=== PATIENT | male | born 1975 | race Asian ===

== ENCOUNTER 2019-09-18 10:27 | Emergency (ER) | payer OTHER ==
[~2019-09-18] VITALS: Ht 167.6 cm; Wt 63.5 kg
[2019-09-18 10:32] VITALS: BP 112/72
[2019-09-18] MEDS ORDERED: ACYCLOVIR 200 MG CAP PO ONE (10:55)
--- NOTE | 2019-09-18 11:22 | NUR ---
SPOKE WITH ANDREEA, CHARGE NURSE AT [facility]. REPORT GIVEN. INFORMED THAT PT WILL BE RETURNING TO FACILITY VIA AMBULANCE WITH ETA OF 1200.
[2019-09-18 12:11] VITALS: BP 107/70
--- NOTE | 2019-09-18 12:13 | NUR ---
Stable Minimal pain MD has seen and Dc'd home Po meds given Report to EMS ([facility]) Ambulated to exit
== END 2019-09-18 12:11 ==
LOC: MED 10:27
DX: B01.9 Varicella without complication (principal); I10 Essential (primary) hypertension; E78.5 Hyperlipidemia, unspecified; Z86.73 Personal history of transient ischemic attack (TIA), and cerebral infarction without residual deficits
CPT/HCPCS: 99283